=== PATIENT | female | born 2000 | race Caucasian/White ===

== ENCOUNTER 2022-11-27 00:44 | Day surgery (SDC) | payer OTHER ==
[2022-11-27] MEDS ORDERED: LIDOCAINE 1%-EPI 1:100000 10 ML MDV SUBQ STA (01:51)
[2022-11-27] MEDS ORDERED: LIDOCAINE MPF 2%-EPI 1:200000 10 ML VIAL SUBQ SCH (02:00)
[2022-11-27] MEDS ORDERED: LIDOCAINE 1%-EPI 1:100000 20 ML MDV SUBQ STA (02:08)
[2022-11-27] MEDS ORDERED: LIDOCAINE-MPF 2% 5 ML VIAL ONE (02:09)
[2022-11-27] MEDS ORDERED: TRANEXAMIC ACID 1,000 MG in SODIUM CHLORIDE 0.9% 100ML 100 ML IV STA (02:19)
[2022-11-27 02:25] LABS: BASOPHILS % (AUTO) 0.3 %; EOSINOPHILS # (AUTO) 0.1 10^3/uL (0.0-0.7); HCT - HEMATOCRIT 31.4 % (37.0-47.0); HGB - HEMOGLOBIN 10.5 g/dL (12.0-16.0); LYMPHOCYTES # (AUTO) 4.2 10^3/uL (1.5-3.5); LYMPHOCYTES % (AUTO) 46.9 %; MEAN CORPUSCULAR HEMOGLOBIN 28.6 pg (27.0-31.0); MEAN CORPUSCULAR HGB CONC 33.4 g/dL (32.0-36.0); MEAN CORPUSCULAR VOLUME 85.6 fL (81.0-99.0); MEAN PLATELET VOLUME 9.8 fL (7.9-10.8); MONOCYTES # (AUTO) 0.8 10^3/uL (0.0-1.0); MONOCYTES % (AUTO) 8.5 %; NEUTROPHILS # (AUTO) 3.9 10^3/uL (1.5-6.6); NEUTROPHILS % (AUTO) 43.2 %; PLT - PLATELET COUNT 343 10^3/uL (130-450); RED BLOOD COUNT 3.67 10^6/uL (4.20-5.40); RED CELL DISTRIBUTION WIDTH 12.9 % (12.0-15.0); WHITE BLOOD COUNT 8.9 x10^3/uL (4.8-10.8)
[2022-11-27] MEDS ORDERED: TRANEXAMIC ACID 1,000 MG/10 ML VIAL ONE ×2 (02:29→03:18)
--- NOTE | 2022-11-27 02:38 | ED Physician Documentation ---
PD HPI FEMALE - Stated complaint Stated Complaint: FEMALE - Chief complaint Chief Complaint: General - History obtained from History obtained from: Patient - Additional information Additional information: 22-year-old female with no reported past medical conditions presents by private vehicle for vaginal bleeding. Patient was having intercourse with her significant other when they felt a popping sound and discomfort. Afterwards the patient began to bleed heavily. The bleeding seemed to slow down somewhat, however it persisted, and the emergent nursing line that they contacted referred him to the emergency department. Patient is never had a pelvic exam, she has never had a Pap smear, denies history of STIs, G0. Review of Systems Constitutional: denies: Fever, Chills Respiratory: denies: Dyspnea, Cough GI: denies: Abdominal Pain, Nausea, Vomiting : reports: Vaginal bleeding. denies: Dysuria, Frequency, Hesitancy, LMP, Irregular menses, Missed period, Now [facility] PAST MEDICAL HISTORY - Allergies Allergies/Adverse Reactions: Allergies Allergy/AdvReac Type Severity Reaction Status Date / Time No Known Drug Allergies Allergy Verified 11/27/22 01:52 PD ED PE NORMAL - Vitals Vital signs reviewed: Yes - General General: Alert and oriented X 3, Well developed/nourished, Other (anxious) - HEENT HEENT: Atraumatic - Neck Neck: Supple, no meningeal sign - Cardiac Cardiac: No murmur, Strong equal pulses, Other (tachycardia) - Respiratory Respiratory: No respiratory distress, Clear bilaterally - Abdomen Abdomen: Soft, Non tender, Non distended - Female Female : Scaffolding Helper present, Other (vaginal bleeding approximately 3 oclock to 6oclock position. Unable to locate source of bleed) - Derm Derm: Warm and dry, No rash - Extremities Extremities: No deformity - Neuro Neuro: Alert and oriented X 3, senior research engineer 2-12 intact, No motor deficit, No sensory deficit, Normal speech - Psych Psych: Normal mood, Normal affect Results - Vitals Vitals: Vital Signs - 24 hr 11/27/22 11/27/22 11/27/22 01:00 02:20 02:30 Temperature 36.8 C Heart Rate 103 H 103 H 100 Respiratory 16 16 16 Rate Blood Pressure 128/59 L 71/39 L 100/66 O2 Saturation 96 98 100 Oxygen O2 Source Room air - Labs Labs: Laboratory Tests 11/27/22 11/27/22 11/27/22 02:12 02:12 02:17 WBC 8.9 RBC 3.67 L Hgb 10.5 L Hct 31.4 L MCV 85.6 MCH 28.6 MCHC 33.4 RDW 12.9 Plt Count 343 MPV 9.8 Neut # (Auto) 3.9 Lymph # (Auto) 4.2 H [place] # (Auto) 0.8 Eos # (Auto) 0.1 Baso # (Auto) 0.0 Absolute Nucleated RBC 0.00 Nucleated RBC % 0.0 Sodium Potassium Chloride Carbon Dioxide Anion Gap BUN Creatinine Estimated GFR (MDRD) Glucose Calcium Total Bilirubin AST ALT Alkaline Phosphatase Total Protein Albumin Globulin Albumin/Globulin Ratio Blood Type A NEGATIVE Blood Type Recheck A NEGATIVE Antibody Screen NEGATIVE Crossmatch IS Only See Detail 11/27/22 02:17 WBC RBC Hgb Hct MCV MCH MCHC RDW Plt Count MPV Neut # (Auto) Lymph # (Auto) [place] # (Auto) Eos # (Auto) Baso # (Auto) Absolute Nucleated RBC Nucleated RBC % Sodium 137 Potassium 3.6 Chloride 109 Carbon Dioxide 25 Anion Gap 3.0 L BUN 10 Creatinine 0.6 Estimated GFR (MDRD) 126 Glucose 115 H Calcium 8.6 Total Bilirubin 0.2 AST 15 ALT 13 Alkaline Phosphatase 41 L Total Protein 6.0 L Albumin 3.6 Globulin 2.4 Albumin/Globulin Ratio 1.5 Blood Type Blood Type Recheck Antibody Screen Crossmatch IS Only PD Medical Decision Making - ED course Complexity details: reviewed results, re-evaluated patient, considered differential, d/w patient, d/w family ED course: Vaginal bleeding after intercourse. No previous history of Pap smears, uncertain if patient has received HPV vaccine. G0 per patient account. I performed a pelvic exam, and there was oozing of fresh blood noted in the vaginal canal without hemorrhage. Unable to visualize source of bleeding and so at 0135 Dr. Contreras of OBGYN was consulted, who agreed to see patient. Dr. Salas evaluated patient, in interim between my exam and repeat exam the patient's bleeding increased significantly and she is now bleeding briskly from the vagina. Unable to control with bedside means and so decision was made to take patient emergently to OR for vaginal repair. Laboratory work ordered, type and screen sent to lab. Empiric 2 units PRBCs ordered for transfusion prophyl actically. Patient taken quickly to OR by the OR staff. Repair per INSTALLATION AND SERVICE TECHNICIAN. - Critical Care Time(min): 43 Time Includes: Direct patient care, Review records, Reassess patient, Document care, Coordinate care, Medical consult Data interpretation: Labs, Pulse ox, Cardiac output Procedures included in critical care time: Peripheral IV, Blood draw Departure - Departure Disposition: ED Transfer to [facility] Clinical Impression: Vaginal laceration, Vaginal hemorrhage Condition: Serious Discharge Date/Time: 11/27/22 03:24
[2022-11-27 02:43] LABS: ALBUMIN 3.6 g/dL (3.2-5.5); ALBUMIN/GLOBULIN RATIO 1.5 (1.0-2.2); BILIRUBIN,TOTAL 0.2 mg/dL (0.2-1.0); CALCIUM 8.6 mg/dL (8.5-10.3); CREATININE 0.6 mg/dL (0.6-1.3); POTASSIUM 3.6 mmol/L (3.5-4.5)
[2022-11-27] MEDS ORDERED: SUCCINYLCHOLINE 200 MG/10 ML VIAL ONE (02:45)
[2022-11-27] MEDS ORDERED: MIDAZOLAM 2 MG/2 ML VIAL ONE (02:46)
[2022-11-27] MEDS ORDERED: PROPOFOL 200 MG/20 ML VIAL IVP ONE (02:46)
[2022-11-27] MEDS ORDERED: fentaNYL 100 MCG/2 ML VIAL ONE (02:47)
[2022-11-27] MEDS ORDERED: ONDANSETRON 4 MG/2 ML VIAL ONE (03:54)
[2022-11-27] MEDS ORDERED: DEXAMETHASONE 4 MG/ML VIAL ONE (03:54)
[2022-11-27] MEDS ORDERED: LACTATED RINGERS 1,000 ML IV ONE ×2 (04:05→04:34)
[2022-11-27] MEDS ORDERED: NALOXONE 0.4 MG/ML VIAL IVP PRN (04:17)
[2022-11-27] MEDS ORDERED: ONDANSETRON 4 MG/2 ML VIAL IVP PRN (04:17)
[2022-11-27] MEDS ORDERED: HYDROmorphone 0.5 MG/0.5 ML SYRINGE IVP PRN (04:17)
[2022-11-27] MEDS ORDERED: fentaNYL 100 MCG/2 ML VIAL IVP PRN (04:17)
[2022-11-27] MEDS ORDERED: ATROPINE ABBOJECT 1 MG/10 ML SYRINGE IVP PRN (04:17)
[2022-11-27] MEDS ORDERED: MORPHINE 2 MG/ML CARPUJECT IVP PRN (04:17)
--- NOTE | 2022-11-27 04:20 | ANESTHESIA ---
Pre-Anesthesia VS, & Labs - Diagnosis vaginal laceration, hemorrhage - Procedure repair of vaginal laceration Vital Signs: Temp Pulse Resp BP Pulse Ox O2 Flow Rate 36.8 C 100 16 100/66 100 11/27/22 01:00 11/27/22 02:30 11/27/22 02:30 11/27/22 02:30 11/27/22 02:30 Height: 5 ft 9 in Weight (kg): 63.503 kg Body Mass Index: 20.7 BMI Classification: Normal - NPO Last Food Intake: 2329 - Is Patient ?: No - Lab Results Current Lab Results: Laboratory Tests 11/27/22 02:17: Sodium 137, Potassium 3.6, Chloride 109, Carbon Dioxide 25, Anion Gap 3.0 L, BUN 10, Creatinine 0.6, Estimated GFR (MDRD) 126, Glucose 115 H , Calcium 8.6, Total Bilirubin 0.2, AST 15, ALT 13, Alkaline Phosphatase 41 L, Total Protein 6.0 L, Albumin 3.6, Globulin 2.4, Albumin/Globulin Ratio 1.5 11/27/22 02:17: WBC 8.9, RBC 3.67 L, Hgb 10.5 L, Hct 31.4 L, MCV 85.6, MCH 28.6, MCHC 33.4, RDW 12.9, Plt Count 343, MPV 9.8, Neut # (Auto) 3.9, Lymph # (Auto) 4.2 H, [place] # (Auto) 0.8, Eos # (Auto) 0.1, Baso # (Auto) 0.0, Absolute Nucleated RBC 0.00, Nucleated RBC % 0.0 11/27/22 02:12: Blood Type Recheck A NEGATIVE 11/27/22 02:12: Blood Type A NEGATIVE, Antibody Screen NEGATIVE, Crossmatch IS Only See Detail Lab results reviewed: Yes Fish Bones: 11/27/22 02:17 11/27/22 02:17 Home Medications and Allergies Active Medications Lidocaine/Epinephrine (Lidocaine Mpf 2%-Epi 1:[id number] 10 Ml Vial) 20 ml SUBQ ONCE YEHUDA Stop: 11/28/22 01:59 Last Admin: 11/27/22 02:41 Dose: Not Given Allergies/Adverse Reactions: Allergies Allergy/AdvReac Type Severity Reaction Status Date / Time No Known Drug Allergies Allergy Verified 11/27/22 01:52 Anes History & Medical History - Anesthetic History Family history of Anesthesia Complications: Denies Family history of Malignant Hyperthermia: Denies - Medical History Cardiovascular: reports: None Pulmonary: reports: None Gastrointestinal: reports: None Urinary: reports: None Neuro: reports: None Musculoskeletal: reports: None Endocrine/Autoimmune: reports: None Blood Disorders: reports: Anemia (approximate 1000ml blood loss from vaginal laceration.) Skin: reports: None Psychosocial: reports: No issues indicated History of Cancer?: No Exam General: Alert, Oriented x3, Cooperative, No acute distress Dental: WNL Mouth Openin Fingerbreadth Neck Mobility: Normal Mallampati classification: II Thyromental Distance: 4-6 cm Mental/Cognitive Status: Alert/Oriented X3, Normal for patient Plan Anesthesia Type: General (RSI. Will require blood transfusion) Consent for Procedure(s) Verified and Reviewed: Yes Code Status: Attempt Resuscitation ASA classification: 2-Mild systemic disease Is this case an emergency?: Yes
--- NOTE | 2022-11-27 04:28 | ANESTHESIA POST OP EVALUATION ---
Anesthesia Post Eval - Post Anesthesia Eval Vitals: Last Vital Signs Temp 36.2 C L 11/27/22 04:25 Pulse 98 11/27/22 04:25 Resp 15 11/27/22 04:25 BP 113/63 11/27/22 04:25 Pulse Ox 100 11/27/22 04:25 O2 Flow Rate CV Function Including HR & BP: Stable Pain Control: Satisfactory Nausea & Vomiting: Negative Mental Status: Baseline Respiratory Status: Airway Patent Hydration Status: Satisfactory Anesthesia Complications: None
[2022-11-27] MEDS ORDERED: LACTATED RINGERS 1,000 ML IV SCH (05:00)
[2022-11-27] MEDS ORDERED: oxyCODONE/ACET 5/325 Prepack 4 PO STA ×2 (05:15→06:19)
[2022-11-27 05:35] LABS: HCT - HEMATOCRIT 34.7 % (37.0-47.0); HGB - HEMOGLOBIN 11.7 g/dL (12.0-16.0)
[2022-11-27 06:46] VITALS: BP 108/58
[2022-11-27] MEDS ORDERED: oxyCODONE 5 MG TABLET PO ONE (07:00)
[2022-11-27] MEDS ORDERED: ACETAMINOPHEN 325 MG TABLET PO ONE (07:00)
--- NOTE | 2022-11-27 07:14 | OPERATIVE REPORT ---
Operative Report - General Procedure Date: 11/27/22 Planned Procedure: Vaginal laceration repair Pre-Op Diagnosis: vaginal laceration, acute blood loss anemia Procedure Performed: repair of torn vaginal septum Post Op Diagnosis: mullerian agenesis, torn and repaired vaginal septum - Procedure Note Primary Surgeon: Ben Secondary Surgeon: Ish Anesthesia Provider: Camila Anesthesia Technique: General ET tube Pathology: none IV Fluids (mL): 1,200 Estimated Blood Loss (mL): 800 Urine Output (mL): 0 Indications: torn vaginal laceration acute blood loss anemia Findings: Normal vulva normal exterior 1/3 of vagina normal hymenal ring vaginal septum - complete upper 2/3 of vagina - torn appx 2cm laceration two cervixes anticipate 2 uterus though not clearly identifiable on bimanual exam Complications: none - Other Other Information/Narrative: After RBA discussed patient taken to the OR where general anesthesia was administered without difficulty. Time out preformed. All involved agreed. Aforementioned findings were noted. Vaginal septum laceration was repaired with 2.0 vicryl. Starting at the apex, repaired with continuous suture. length of laceration 1.5cm hemostatic after repair. after repair exam under anesthesia confirmed vaginal septum as well as 2 cer vices. all counts correct, patient taken to PACU in stable condition.
== END 2022-11-27 08:18 | disposition home or self-care (01) ==
LOC: ED 00:44 → SDS 02:15 → MS2 04:37 → SDS 08:18
PROVIDERS: ATTEND Obstetrics & Gynecology
DX: S31.41XA Laceration without foreign body of vagina and vulva, initial encounter (principal); X58.XXXA Exposure to other specified factors, initial encounter; N93.8 Other specified abnormal uterine and vaginal bleeding; D62 Acute posthemorrhagic anemia; Q52.10 Doubling of vagina, unspecified; Q51.820 Cervical duplication
CPT/HCPCS: 36415; 57200; 80053; 85014; 85018; 85025; 86850; 86900; 86901; 86920; A9270; J7120; P9016

== ENCOUNTER 2022-12-24 08:05 | Outpatient (CLI) | payer OTHER ==
--- NOTE | 2022-12-27 09:49 | MRI Report ---
PROCEDURE: PELVIS W/WO INDICATIONS: ANOMALIES OF UTERUS TECHNIQUE: Magnetic resonance images were obtained of the pelvis with and without intravenous contras t using multiple sequences and multiple planes. COMPARISON: None. FINDINGS: Image quality: Good Lower abdomen: No bowel obstruction or pathologic ascites. Bladder: Underdistended, unremarkable. Reproductive organs: Numerous ovarian follicles are present, no solid adnexal mass identified. Normal thickness junctional zone. On precontrast T1-weighted images, no active deep pelvic endometrio sis deposits are identified. There are 2 endometrial stripes. Each endometrial stripe measures up to 5 to 6 mm at the fundus, whic h is within normal limits. There is no contour indentation at the uterine fundus. The septum separati ng the 2 endometrial stripes extends to the lower uterine segment and cervix. Rectum: Unremarkable Vessels and lymph nodes: No abdominal aortic aneurysm. No aneurysmal vessel identified. Pelvic wall: Unremarkable Bones: No acute or suspicious osseous finding. 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 Cons ider gynecologic follow-up. No concavity of the uterine fundal contour identified. Reviewed by: Wild Duarte MD on 12/27/2022 9:48 AM PDT Approved by: Wild Duarte MD on 12/27/2022 9:48 AM PDT Station ID: [id number]
== END 2022-12-24 08:06 | disposition home or self-care (01) ==
LOC: DI 08:05
PROVIDERS: ATTEND Obstetrics & Gynecology
DX: Q51.10 Doubling of uterus with doubling of cervix and vagina without obstruction (principal)
CPT/HCPCS: 72197; A9585

== ENCOUNTER 2023-12-15 11:28 | Outpatient (CLI) | payer OTHER ==
[2023-12-15 11:42] LABS: BASOPHILS % (AUTO) 0.3 %; EOSINOPHILS # (AUTO) 0.1 10^3/uL (0.0-0.7); EOSINOPHILS % (AUTO) 0.8 %; HCT - HEMATOCRIT 38.8 % (37.0-47.0); HGB - HEMOGLOBIN 12.2 g/dL (12.0-16.0); LYMPHOCYTES # (AUTO) 3.3 10^3/uL (1.5-3.5); LYMPHOCYTES % (AUTO) 29.8 %; MEAN CORPUSCULAR HEMOGLOBIN 25.5 pg (27.0-31.0); MEAN CORPUSCULAR HGB CONC 31.4 g/dL (32.0-36.0); MEAN CORPUSCULAR VOLUME 81.2 fL (81.0-99.0); MEAN PLATELET VOLUME 9.7 fL (7.9-10.8); MONOCYTES # (AUTO) 0.8 10^3/uL (0.0-1.0); MONOCYTES % (AUTO) 7.4 %; NEUTROPHILS # (AUTO) 6.9 10^3/uL (1.5-6.6); NEUTROPHILS % (AUTO) 61.4 %; PLT - PLATELET COUNT 348 10^3/uL (130-450); RED BLOOD COUNT 4.78 10^6/uL (4.20-5.40); RED CELL DISTRIBUTION WIDTH 13.4 % (12.0-15.0); WHITE BLOOD COUNT 11.2 x10^3/uL (4.8-10.8)
[2023-12-15 17:41] LABS: BILIRUBIN,URINE NEGATIVE (NEGATIVE); GLUCOSE, URINE (UA) NEGATIVE (NEGATIVE); KETONES,URINE (UA) NEGATIVE (NEGATIVE); LEUKOCYTE ESTERASE, URINE TRACE (NEGATIVE); NITRITE,URINE NEGATIVE (NEGATIVE); OCCULT BLOOD,URINE NEGATIVE (NEGATIVE); PROTEIN,URINE NEGATIVE (NEGATIVE); UROBILINOGEN,URINE 0.2 (NORMAL) E.U./dL (NORMAL)
[2023-12-15 17:47] LABS: CLARITY,URINE HAZY (CLEAR)
[2023-12-15 17:58] LABS: BACTERIA,URINE Few /HPF (None Seen); RBC,URINE 0-5 /HPF (0-5); SQUAMOUS EPITHELIAL CELL,UR MOD Squamous (<= Few)
[2023-12-16 03:11] LABS: HBsAG SCREEN Negative (Negative); HIV SCREEN 4TH GENERATION Non Reactive (Non Reactive)
[2023-12-16 06:10] LABS: RPR Non Reactive (Non Reactive)
[2023-12-16 10:09] LABS: VARICELLA-ZOSTER AB IGG <135 index (Immune >165)
[2023-12-17 05:09] LABS: HCV AB Non Reactive (Non Reactive)
== END 2023-12-15 11:29 | disposition home or self-care (01) ==
LOC: LAB 11:28
PROVIDERS: ATTEND Obstetrics & Gynecology
DX: Z34.00 Encounter for supervision of normal first pregnancy, unspecified trimester (principal); Z36.89 Encounter for other specified antenatal screening
CPT/HCPCS: 36415; 81001; 85025; 86592; 86762; 86787; 86803; 86850; 86900; 86901; 87086; 87340; 87389

== ENCOUNTER 2023-12-27 12:37 | Outpatient (CLI) | payer OTHER ==
--- NOTE | 2023-12-27 14:28 | Ultrasound Report ---
PROCEDURE: OB 1st Trimester INDICATIONS: POSITIVE TEST OUTSIDE/PRIOR DATING DATA: Last menstrual period (LMP): 10/24/2023. LMP-based estimated date of delivery (CRISTA): 07/30/2024. First dating scan (date and location): 12/27/2023. Estimated date of delivery (CRISTA) from first dating scan: 08/02/2024. TECHNIQUE: Real-time scanning was performed of the fetus and maternal pelvic organs, with image documentation. COMPARISON: None. FINDINGS: Intrauterine gestational sac present. Embryo: Bromide-rump length measures 2.1 cm coarse 9-8 weeks 5 days Heart rate: 164 bpm. Other: No perigestational fluid collection. Measurement variability in dating: +/- 4 weeks by LMP, +/- 7 days by mean sac diameter (use before 6 weeks gestation if crown-rump length not able to be measured), +/- 5 days by crown-rump length (6-12 weeks gestation). Maternal organs: Ovaries appear within normal limits. IMPRESSION: Single live intrauterine with gestational age of 8 weeks 5 days. Recommend follow-up imaging at 20-22 weeks for dates and anatomy. Reviewed by: Guerline White MD on 12/27/2023 2:26 PM PDT Approved by: Guerline White MD on 12/27/2023 2:26 PM PDT Station ID: [id number]
== END 2023-12-27 12:38 | disposition home or self-care (01) ==
LOC: DI 12:37
PROVIDERS: ATTEND Obstetrics & Gynecology
DX: Z34.01 Encounter for supervision of normal first pregnancy, first trimester (principal)

== ENCOUNTER 2024-01-02 07:15 | Outpatient (CLI) | payer OTHER | END 2024-01-02 07:30 | disposition home or self-care (01) | LOC: LAB.N 07:15 | PROVIDERS: ATTEND Family Medicine | DX: Z13.9 Encounter for screening, unspecified (principal) | CPT/HCPCS: 81599 ==

== ENCOUNTER 2024-01-11 11:10 | Outpatient (CLI) | payer OTHER ==
[2024-01-12 15:49] LABS: BACTERIAL VAGINOSIS DNA POSITIVE (NEGATIVE); CANDIDA GLABRATA DNA NEGATIVE (NEGATIVE); CANDIDA GROUP DNA NEGATIVE (NEGATIVE); CANDIDA KRUSEI DNA NEGATIVE (NEGATIVE); TRICHOMONAS VAGINALIS DNA NEGATIVE (NEGATIVE)
[2024-01-12 15:53] LABS: CHLAMYDIA TRACHOMATIS DNA NEGATIVE (NEGATIVE); NEISSERIA GONORRHOEAE DNA NEGATIVE (NEGATIVE)
== END 2024-01-11 11:11 | disposition home or self-care (01) ==
LOC: LAB.WC 11:10
PROVIDERS: ATTEND Obstetrics & Gynecology
DX: N89.8 Other specified noninflammatory disorders of vagina (principal); Z11.3 Encounter for screening for infections with a predominantly sexual mode of transmission
CPT/HCPCS: 81514; 87491; 87591; 87661

== ENCOUNTER 2024-08-03 10:37 | Inpatient (IN) ==
[2024-08-03] MEDS ORDERED: TERBUTALINE 1 MG/ML VIAL SUBQ PRN (10:43)
[2024-08-03] MEDS ORDERED: miSOPROStoL 200 MCG TABLET BC PRN (10:43)
[2024-08-03] MEDS ORDERED: TRANEXAMIC ACID IN NACL 1,000 MG/100 ML BAG IV PRN (10:43)
[2024-08-03] MEDS ORDERED: LABETALOL 20 MG/4 ML SYRINGE IVP PRN ×3 (10:43)
[2024-08-03] MEDS ORDERED: miSOPROStoL 200 MCG TABLET PR PRN (10:43)
[2024-08-03] MEDS ORDERED: METHYLERGONOVINE 0.2 MG/ML VIAL IM PRN (10:43)
[2024-08-03] MEDS ORDERED: OXYTOCIN 10 UNIT/ML VIAL IM PRN (10:43)
[2024-08-03] MEDS ORDERED: ACETAMINOPHEN 500 MG TABLET PO PRN (10:43)
[2024-08-03] MEDS ORDERED: hydrALAZINE INJ 20 MG/ML VIAL IVP PRN (10:43)
[2024-08-03] MEDS ORDERED: NIFEdipine 10 MG CAPSULE PO PRN (10:43)
[2024-08-03] MEDS ORDERED: OXYTOCIN/SODIUM CHLORIDE 500 ML IV PRN (10:43)
[2024-08-03] MEDS ORDERED: ONDANSETRON 4 MG/2 ML VIAL IVP PRN (10:43)
[2024-08-03] MEDS ORDERED: lidocaine 1% 20 ML MDV ID PRN (10:43)
[2024-08-03] MEDS ORDERED: fentaNYL 100 MCG/2 ML VIAL IVP PRN (10:43)
[2024-08-03] MEDS ORDERED: LACTATED RINGERS 1,000 ML IV PRN (10:43)
[2024-08-03 11:52] LABS: BASOPHILS % (AUTO) 0.1 %; EOSINOPHILS % (AUTO) 0.2 %; HCT - HEMATOCRIT 36.4 % (37.0-47.0); HGB - HEMOGLOBIN 12.1 g/dL (12.0-16.0); LYMPHOCYTES # (AUTO) 2.7 10^3/uL (1.5-3.5); LYMPHOCYTES % (AUTO) 23.8 %; MEAN CORPUSCULAR HEMOGLOBIN 29.2 pg (27.0-31.0); MEAN CORPUSCULAR HGB CONC 33.2 g/dL (32.0-36.0); MEAN CORPUSCULAR VOLUME 87.9 fL (81.0-99.0); MEAN PLATELET VOLUME 10.6 fL (7.9-10.8); MONOCYTES # (AUTO) 0.9 10^3/uL (0.0-1.0); MONOCYTES % (AUTO) 7.6 %; NEUTROPHILS # (AUTO) 7.6 10^3/uL (1.5-6.6); PLT - PLATELET COUNT 271 10^3/uL (130-450); RED BLOOD COUNT 4.14 10^6/uL (4.20-5.40); RED CELL DISTRIBUTION WIDTH 12.5 % (12.0-15.0); WHITE BLOOD COUNT 11.1 x10^3/uL (4.8-10.8)
--- NOTE | 2024-08-03 11:57 | HISTORY & PHYSICAL EXAMINATION ---
Admit History Smoking Status: Never smoker Other Maternal History Other Maternal History: Patient is a 24-year-old G1, P0 at 40 weeks 4 days gestation here for induction of labor at term. No contractions. She has good movement. Denies loss of fluid. No JOSEPH/BV or RUQP. No vaginal bleeding. Denies nausea and vomiting. Denies urinary urgency or dysuria. All other symptoms reviewed and were negative except per HPI. Course FOB Christ Kimball. She is originally from [place], [place]. don't want to know gender. Patient had a uterine and vaginal septum removed. 07/2023 at . has 2 cervixes but from what I could tell from opnote (in chart) the cavity is now connected as one. LMP: 10/23 CRISTA by LMP: 07/30/2024 -12/27/23 @ 8w5d c/w LMP (08/02) FINAL CRISTA: 07/31/2023 Blood type- A- Rhogam 05/08/2024 Anitbody- Negative CBC- Hep B-Negative HepC-NR HIV_NR RUB: NOT immune VZV: NOT immune GCCT-Neg PAP- 01/11/2024- NILM HSV: denies Genetic testing: NIPT normal AFP- Negative Covid: none (virus or vaccine) Flu: declines FAS: Anterior placenta 3VC TEETEE- wnl EFW- 468.3g 59.8%ile 50gm OGCT: 143 3HR GTT: 74 163 172 123 TDAP: given 05/08/2024 mls Breast Pump: has one Antibody screen:negative 3rd trimester H/H/plt 11.8/36.3/260 GBS:07/03 Negative MOD: Contraception: Previous OCPs, considering again. OB Visit Log Initial Weight: 165 lb Meds/Allgy Home Medications Ambulatory Orders Medication Instructions Recorded Confirmed vits no.126-ferrous fum tab PO 02/09/24 07/29/24 28 mg iron-folic acid 800 mcg tablet (Classic ) Allergies Allergies Allergy/AdvReac Type Severity Reaction Status Date / Time No Known Drug Allergies Allergy Verified 07/17/24 13:53 PFSH Active Problems All Active Problems (Updated 08/03/24 @ 12:25 by Brandon Ayala MD) 40 weeks gestation of (Acute) Encounter for induction of labor (Acute) Abnormal glucose tolerance affecting , antepartum (Acute) Rh negative status during (Acute) Congenital malformation of uterus and cervix, unspecified (Acute 01/05/23) Medical History Medical History (Updated 08/03/24 @ 12:25 by Brandon Ayala MD) Supervision of high risk in second trimester Vaginal discharge during Other anomalies of uterus (01/05/23) Social History Social History (Updated 02/09/24 @ 10:18 by Ronna Montes MA) Smoking Status: Never smoker Do you dip or chew tobacco?: No ETOH Use: None Substance Use: denies use Review of Systems Status of ROS: 10 or more systems reviewed and unremarkable except as noted in history and below Physical Other Notes Labor Progress Note/Additional Text: General: Alert, oriented, no acute distress Head: Normal cephalic atraumatic Eyes: PERRLA, extraocular motions intact. Respiratory: Normal rate of respiration. No accessory muscle use, normal respiratory effort. Cardiovascular: Regular rate and rhythm Abdomen: Gravid, nontender, nondistended Extremities: Normal range of motion Neuro: Oriented x3. Normal movements Psych: Appropriate mood and affect. Normal judgment and insight SVE: 2/-3 FHT: 130 bpm baseline, moderate variability, accelerations present, no decelerations. [place]: Quiescent Plan for Labor Plan For Labor I expect patient to be DC'd or transferred within 96 hours.: Yes Conclusion/Plan Problem List (1) Encounter for induction of labor: Plan: -Patient counseled on the risk, benefits, alternatives of induction of labor and desires to proceed. Plan to start with 25 mcg PV of misoprostol every 4 hours. Cervix still not favorable. -Admit for observation for cervical ripening. If successful, will admit for labor. -Epidural at patient's request. (2) 40 weeks gestation of : Plan: Routine and care (3) Rh negative status during : Plan: Will screen Qualifiers: Trimester: third trimester Qualified Code(s): O26.893 - Other specified related conditions, third trimester; Z67.91 - Unspecified blood type, Rh negative (4) Congenital malformation of uterus and cervix, unspecified: Plan: Status post septum resection, no myometrial resection. Lab Results 08/03/24 11:30
[2024-08-03] MEDS: miSOPROStoL 100 MCG TABLET VG SCH (12:13)
[2024-08-03] MEDS: SODIUM CHLORIDE FLUSH 0.9% 10 ML SYRINGE IVP SCH (12:14)
[2024-08-03] MEDS: CALCIUM CARBONATE CHEW 500 MG TABLET PO SCH (20:19)
[2024-08-03] MEDS: SODIUM CHLORIDE FLUSH 0.9% 10 ML SYRINGE IVP PRN (20:19)
--- NOTE | 2024-08-04 10:54 | PROVIDER PROGRESS NOTE ---
Labor Progress Note Uterine Monitoring Uterine Monitoring Mode: positive External toco Contraction Frequency (min/apart): Irregular, 2-6 but intermittent Monitoring Monitor Mode: positive External ultrasound Heart Rate Baseline: 140 Heart Rate Variability: positive Moderate (6-25 bmp) Accelerations: positive Present, 15x15 Decelerations: positive None Vaginal Exam Dilation (in cm): 4 Effacement (%): 60 Station: -2 Labor Progress Note Labor Progress Note/Additional Text: Patient consented to amniotomy. Small amount of clear fluid. Fetus is category 1. Continue expectant management. Epidural at patient's request.
[2024-08-04] MEDS ORDERED: LIDOCAINE 2%-EPI 1:100000 20 ML MDV ONE (11:31)
[2024-08-04] MEDS ORDERED: ROPIVACAINE 0.2% 200 MG/100 ML BAG EP ONE (11:31)
[2024-08-04] MEDS: LACTATED RINGERS 500 ML IV ONE (12:20)
[2024-08-04] MEDS ORDERED: ONDANSETRON 4 MG/2 ML VIAL IVP PRN ×2 (12:22→21:01)
[2024-08-04] MEDS ORDERED: ePHEDrine 50 MG/ML VIAL IVP PRN (12:22)
[2024-08-04] MEDS ORDERED: diphenhydrAMINE INJ 50 MG/ML VIAL IVP PRN (12:22)
[2024-08-04] MEDS ORDERED: NALOXONE 0.4 MG/ML VIAL IVP PRN (12:22)
[2024-08-04] MEDS ORDERED: NALBUPHINE 10 MG/ML AMP IVP PRN (12:22)
[2024-08-04] MEDS ORDERED: METOCLOPRAMIDE 10 MG/2 ML VIAL IVP PRN (12:22)
[2024-08-04] MEDS: OXYTOCIN/SODIUM CHLORIDE 500 ML IV SCH (15:04)
--- NOTE | 2024-08-04 15:45 | ANESTHESIA PROCEDURE NOTE ---
Pre-Anesthesia VS, & Labs Diagnosis Surgical Diagnosis:: labor pain Procedure Procedure: labor epidural Vitals Vital Signs: Temp Pulse Resp BP 36.7 C 103 H 14 134/71 H 08/03/24 11:40 08/03/24 11:40 08/03/24 11:40 08/03/24 11:40 Height (in): 5 ft 8 in Weight (kg): 88 kg Body Mass Index: 29.5 BMI Classification: Overweight NPO Last Fluid Intake: clears now Is Patient ?: Yes Estimated Due Date:: 08/04/24 Lab Results Current Lab Results: Laboratory Tests 08/03/24 11:30: WBC 11.1 H, RBC 4.14 L, Hgb 12.1, Hct 36.4 L, MCV 87.9, MCH 29.2, MCHC 33.2, RDW 12.5, Plt Count 271, MPV 10.6, Neut # (Auto) 7.6 H, Lymph # (Auto) 2.7, [place] # (Auto) 0.9, Eos # (Auto) 0.0, Baso # (Auto) 0.0, Absolute Nucleated RBC 0.00, Nucleated RBC % 0.0, Blood Type A NEGATIVE, Antibody Screen NEGATIVE 08/03/24 11:30 Meds/Allgy Home Medications Ambulatory Orders Medication Instructions Recorded Confirmed vits no.126-ferrous fum tab PO 02/09/24 07/29/24 28 mg iron-folic acid 800 mcg tablet (Classic ) Allergies Allergies Allergy/AdvReac Type Severity Reaction Status Date / Time No Known Drug Allergies Allergy Verified 07/17/24 13:53 PFSH Active Problems All Active Problems 40 weeks gestation of (Acute) Encounter for induction of labor (Acute) Abnormal glucose tolerance affecting , antepartum (Acute) Rh negative status during (Acute) Congenital malformation of uterus and cervix, unspecified (Acute 01/05/23) Medical History Medical History Vaginal discharge during Supervision of high risk in second trimester Other anomalies of uterus (01/05/23) Social History Social History Smoking Status: Never smoker Do you dip or chew tobacco?: No ETOH Use: None Substance Use: denies use Anesthesia Exam (Expanded) Exam General: Alert Dental: WNL Mouth Openin Fingerbreadth Neck Mobility: Normal Mallampati classification: II Thyromental Distance: 4-6 cm Plan Plan Anesthesia Type: Epidural Consent for Procedure(s) Verified and Reviewed: Yes Code Status: Attempt Resuscitation ASA Classification ASA classification: 2-Mild systemic disease Is this case an emergency?: No
[2024-08-04] MEDS: ROPIVACAINE 0.2% 200 MG/100 ML BAG EP PRN (19:05)
[2024-08-04] MEDS ORDERED: CALCIUM CARBONATE CHEW 500 MG TABLET PO PRN (21:01)
[2024-08-04] MEDS ORDERED: SIMETHICONE CHEW 80 MG TABLET PO PRN (21:01)
[2024-08-04] MEDS ORDERED: WITCH HAZEL/GLYCERIN 1 PAD TOP PRN (21:01)
--- NOTE | 2024-08-04 21:07 | DELIVERY NOTE ---
Delivery Note Labor Labor: positive Augmented by oxytocin Infant Delivery Method Delivery Method: positive Spontaneous vaginal delivery Cervical Ripening Method Cervical Ripening Method: positive Misoprostil Presentation Presentation: positive Compound (Left hand) and MARQUEZ - right occiput anterior Nuchal Cord Nuchal Cord: positive Present and Reduced Laceration Laceration: positive 1st degree, Periurethral and Other (Hymenal) Suture Suture Type: positive Vicryl (3-0) and Chromic (3-0) Castile Castile: positive Placed in direct skin contact with mother and [place] used Cord Cord: positive 3 vessels Placenta Placenta: positive Intact Estimated Blood Loss Estimated Blood Loss (in cc): 250 Post Delivery Events Post Delivery Events: positive No post delivery events Delivery Comments (Free Text/Narrative) Delivery Comments (Free Text/Narrative): Preoperative Diagnoses 40 weeks gestation Induction of labor History of vaginal and uterine septum repair Postoperative Diagnoses Same Delivery of live huggins Status post Summary Patient was admitted at 40 weeks 4 days gestation for induction of labor at term. She received 4 doses misoprostol followed by amniotomy. She had hypotonic uterine contractions, so oxytocin was started. She progressed quickly through the day until complete and started to push. Delivery Summary: Patient was placed in the dorsal lithotomy position. Upon maternal pushing the head was delivered atraumatically followed by the anterior shoulder, posterior shoulder, then the remainder of the infant's body. Nuchal cord was reduced. A female was delivered with APGARS of 8 at 1 minute and 9 at 5 minutes. The infant was placed on its mother's chest . After the cord finished pulsating, the umbilical cord was clamped times two and cut. The placenta delivered intact with three vessel cord. Placenta was not sent to pathology. Thirty units of Pitocin were added to the IV fluid and allowed to run freely. Uterine massage was performed until uterus was deemed firm. Upon inspection the perineum, she had a first-degree midline laceration that was repaired with 2 [id number] stitches. She also had a periurethral tear that has small segment of the hymen that was torn. Diameter required 1 [id number] stitch for hemostasis. The periatrial tear was torn, but not bleeding, so no stitching was performed. Upon re-inspection the patient was hemostatic. Uterus again massaged and found to be firm. Needle and sponge counts were correct. Patient was stable and allowed to recover in L&D room. Infant was stable and remained in room with mother. weight is pending at this time.
[2024-08-05] MEDS: LACTATED RINGERS 1,000 ML IV SCH (01:01)
[2024-08-05] MEDS: IBUPROFEN 600 MG TABLET PO SCH (01:12)
[2024-08-05] MEDS: ACETAMINOPHEN 500 MG TABLET PO SCH (01:12)
[2024-08-05] MEDS ORDERED: MEASLES,MUMPS & RUBELLA VACC 0.5 ML VIAL SUBQ ONE (08:44)
[2024-08-05] MEDS: MEASLES,MUMPS & RUBELLA VACC 0.5 ML VIAL SUBQ ONE (10:07)
--- NOTE | 2024-08-05 12:11 | PHARMACY PROGRESS NOTE ---
Best Possible Medication History Admit Date and Time: 08/04/24 1109 Home Medications Medication Instructions Recorded Confirmed Type vits no.126-ferrous fum 1 tab PO DAILY 02/09/24 08/05/24 History 28 mg iron-folic acid 800 mcg tablet (Classic ) Medications reviewed in ED?: Yes Medication History completed: Yes Patient Interview: Completed Secondary Source(s): Insurance records [facility] Statement: Per director ehs and RN iterview with patient. [employer] records also available for review. As the person ultimately responsible for medication therapy, providers are able to order a medication from an existing home medication list in [facility] via the "Reconcile Routine" prior to Confirmation of that medication by clerical support. Such practice is discouraged except when the physician, in their clinical judgment, deems that a medical need exists for a medication without regard to previous use.
--- NOTE | 2024-08-05 20:50 | PROVIDER PROGRESS NOTE ---
Subjective Prog Note Date Prog Note Date: 08/05/24 Prog Note Time: 08:45 Subjective Subjective: got some rest. vag del about 10 pm last night. breast feeding. normal bleeding. Doing well. Current Medications Current Medications Current Medications: Current Medications Generic Name Dose Route Start Last Admin Trade Name Freq PRN Reason Stop Dose Admin Acetaminophen 1,000 mg 08/04/24 22:00 08/05/24 19:11 Acetaminophen 500 Mg Tablet PO 1,000 mg Q8HR YEHUDA Administration Calcium Carbonate/Glycine 500 mg 08/04/24 21:01 Calcium Carbonate Chew 500 Mg Tablet PO TID PRN Heartburn Fentanyl 50 mcg 08/03/24 10:43 Fentanyl 100 Mcg/2 Ml Vial IVP Q1H PRN Severe Pain (score 7-10) Hydralazine HCl 5 - 10 mg 08/03/24 10:43 Hydralazine Inj 20 Mg/Ml Vial IVP Q20M PRN SBP> or= 160 OR DBP> or= 110 Protocol Oxytocin/Sodium Chloride 500 mls @ 999 mls/hr 08/03/24 10:43 Pitocin/Sodium Chloride IV PRN PRN POST- HEMORR PREVENTION Protocol 999 MILLIUNIT/MIN Tranexamic Acid 1,000 mg in 100 mls @ 600 mls/hr 08/03/24 10:43 Tranexamic 1,000 Mg/100ml-Nacl IV Q30M PRN EBL >1200mL and within 3hr Oxytocin/Sodium Chloride 500 mls @ 2 mls/hr 08/04/24 15:00 08/04/24 21:18 Pitocin/Sodium Chloride IV Infused TITR YEHUDA Titration Protocol 2 MILLIUNIT/MIN Ibuprofen 600 mg 08/05/24 00:00 08/05/24 15:14 Ibuprofen 600 Mg Tablet PO 600 mg Q6HR YEHUDA Administration Labetalol HCl 20 mg 08/03/24 10:43 Labetalol 20 Mg/4 Ml Syringe IVP .ONCE PRN SBP> or= 160 OR DBP> or= 110 Protocol Labetalol HCl 20 - 40 mg 08/03/24 10:43 Labetalol 20 Mg/4 Ml Syringe IVP Q10M PRN SBP> or= 160 OR DBP> or= 110 Protocol Labetalol HCl 20 - 80 mg 08/03/24 10:43 Labetalol 20 Mg/4 Ml Syringe IVP Q10M PRN SBP> or= 160 OR DBP> or= 110 Protocol Lidocaine HCl 20 ml 08/03/24 10:43 Lidocaine 1% 20 Ml Mdv ID 08/06/24 10:43 .ONCE PRN PERINEAL REPAIR Methylergonovine Maleate 0.2 mg 08/03/24 10:43 Methylergonovine 0.2 Mg/Ml Vial IM .ONCE PRN Hemorrhage Misoprostol 600 mcg 08/03/24 10:43 Misoprostol 200 Mcg Tablet BC .ONCE PRN Hemorrhage Misoprostol 800 mcg 08/03/24 10:43 Misoprostol 200 Mcg Tablet MS .ONCE PRN Hemorrhage Nifedipine 10 - 20 mg 08/03/24 10:43 Nifedipine 10 Mg Capsule PO Q20M PRN SBP> or= 160 OR DBP> or= 110 Protocol Ondansetron HCl 4 mg 08/03/24 10:43 Ondansetron 4 Mg/2 Ml Vial IVP Q4HR PRN Nausea / Vomiting Ondansetron HCl 4 mg 08/04/24 21:01 Ondansetron 4 Mg/2 Ml Vial IVP Q4HR PRN Nausea / Vomiting Oxytocin 10 unit 08/03/24 10:43 Oxytocin 10 Unit/Ml Vial IM .ONCE PRN Step One if no IV access. Simethicone 80 mg 08/04/24 21:01 Simethicone Chew 80 Mg Tablet PO TID PRN Gas Sodium Chloride 10 ml 08/03/24 10:43 08/03/24 20:19 Sodium Chloride Flush 0.9% 10 Ml Syringe IVP 10 ml PRN PRN Administration NEEDED PER PROVIDER ORDERS Sodium Chloride 10 ml 08/03/24 11:00 08/05/24 09:42 Sodium Chloride Flush 0.9% 10 Ml Syringe IVP Not Given Q8H YEHUDA Terbutaline Sulfate 0.25 mg 08/03/24 10:43 Terbutaline 1 Mg/Ml Vial SUBQ .ONCE PRN Tachystole [place]/Glycerin 1 pad 08/04/24 21:01 [place]/Glycerin 1 Pad TOP PRN PRN ITCHING Objective Vital Signs/Intake & Output Reviewed Vital Signs: Yes Vital Signs: Vital Signs x48h Temp Pulse Resp BP Pulse Ox 08/05/24 16:52 36.9 C 91 16 106/69 96 08/05/24 12:50 36.5 C 94 14 108/59 L 98 Intake & Output: Intake & Output 08/02/24 08/03/24 08/04/24 08/05/24 23:59 23:59 23:59 23:59 Intake Total 1400 / 1400 Output Total 1100 / 1100 400 / 400 Balance 300 / 300 -400 / -400 Weight (kg) 196 lb 194 lb 0.108 oz Objective General Appearance: positive No acute distress Lab Results 08/03/24 11:30 Assessment/Plan Problem List (1) Encounter for induction of labor: Impression: delivered now. routine pp care. discharge tomorrow. (2) 40 weeks gestation of : (3) Rh negative status during : Qualifiers: Trimester: third trimester Qualified Code(s): O26.893 - Other specified related conditions, third trimester; Z67.91 - Unspecified blood type, Rh negative (4) Congenital malformation of uterus and cervix, unspecified:
[2024-08-06 09:16] VITALS: BP 109/63; TEMP 97.7; O2SAT 98
--- NOTE | 2024-08-06 09:32 | Discharge Summary ---
Discharge Summary Admit Date: 08/03/24 Discharge Date: 08/06/24 Discharging Provider: Brandon Ayala Code Status: Attempt Resuscitation DIAGNOSES Admission Diagnoses: 40 weeks gestation History of uterine resection Discharge Diagnoses with Status of Each Condition: Same Status post spontaneous vaginal delivery Delivery of live huggins HPI History of Present Illness: Subjective Patient reports she is doing well. Lochia appropriate. Denies heavy bleeding. Ambulating. Pelvic and abdominal pain well-controlled. Tolerating oral intake. Diet: Regular. Voiding without difficulty. Passing flatus. Denies BM. Patient is bonding with baby in room Breast feeding going well. Denies feeling lightheaded, dizzy or excessively fatigued. Objective General: Alert, oriented, no apparent distress. Cardiovascular: Regular rate. Regular rhythm. Lungs: No increased work of breathing. Abdomen: Uterus firm. Below umbilicus. No guarding or rebound. Extremities: No pain on palpation. No cords palpated. Distal pulses intact. HOSPITAL COURSE Hospital Course: Patient was admitted for induction of labor at 40 weeks gestation and received misoprostol for 4 doses followed by amniotomy. She had hypotonic uterine contractions, so oxytocin was initiated. After that, she progressed quickly until complete and ready to push. Second stage was uncomplicated, had small vaginal lacerations. recovery was uneventful and she was discharged on day 2 with her . ALLERGIES Allergies Allergy/AdvReac Type Severity Reaction Status Date / Time No Known Drug Allergies Allergy Verified 07/17/24 13:53 MEDICATIONS Ambulatory Orders Medication Instructions Recorded Confirmed vits [id number] fum 1 tab PO DAILY 02/09/24 08/05/24 28 mg iron-folic acid 800 mcg tablet (Classic ) PHYSICAL EXAM AT DISCHARGE Vital Signs: Vital Signs x48h Temp Pulse Resp BP BP Pulse Ox 08/06/24 09:15 36.5 C 86 16 109/63 98 08/06/24 03:32 85 14 103/62 96 LABS 08/03/24 11:30 FOLLOW UP Follow Up: With [facility] women's care in 1 to 2 weeks TIME SPENT Time Spent in Discharge (Minutes): 20 Discharge Plan Discharge Patient Disposition: Home, Self Care Condition: Stable Medically Cleared Date:: 08/06/24 Prescriptions: Continued Classic 28 mg iron- 800 mcg tablet 1 tab PO DAILY Diet: Regular Print Language: Syriac Patient Instructions: Vaginal After, Depression Follow-up Care: Brandon Ayala MD [Primary Care Provider] -
--- NOTE | 2024-08-06 10:58 | Labor Flowsheet ---
Labor Flowsheet Datetime Report Generated by CPN: 08/06/2024 10:58 Datetime: 08/06/2024 09:06 VITAL SIGNS NBP Sys/Allyssa/Mean (mmHg): 109 : 63 : 75 Pulse: 88 Datetime: 08/05/2024 21:44 SpO2 (%): 96 Datetime: 08/04/2024 23:00 Stage of : Datetime: 08/04/2024 21:18 MEDICATIONS Pitocin (milliunits): Discontinued Datetime: 08/04/2024 20:47 Medication Comments: pitocin bolus infusing Datetime: 08/04/2024 20:45 Vital Sign Comments: Blood pressure obtained with bent arm Datetime: 08/04/2024 20:44 LaborFlag: Labor Datetime: 08/04/2024 20:30 UTERINE ACTIVITY Monitor Mode: External Frequency (min): 1-3 Quality: Strong Duration (sec): 40-60 Pattern: Normal: <= 5 Contractions in 10 Minutes Resting Tone (Palpate): Relaxed ASSESSMENT A Monitor Mode: Telemetry FHR Baseline Rate : 160 Accelerations: None Decelerations: Prolonged Category: Category II Pushing Progress: Pushing Effectively with Contractions Datetime: 08/04/2024 20:15 Variability: Moderate 6-25 bpm Actions for Decelerations: Provider Notified Comments: provider remains at bedside Datetime: 08/04/2024 20:01 Patient Care Comments: L lateral with raised leg pushing Datetime: 08/04/2024 19:30 Pitocin Checklist: At Least 1 Acceleration of 15 bpm x 15 Seconds in 30 Minutes or Adequate Variabi lity; No More than 1 Late Deceleration Occurred in Past 30 Minutes; No More than 2 Variable Decelerat ions > 60 Seconds in Duration and decreasing >60 bpm in 30 minutes; No More than 5 Uterine Contractio ns in 10 Minutes for any 20 Minute Interval; Uterus Palpates Soft between Contractions Datetime: 08/04/2024 19:15 COMMUNICATION Communication: Report Given to Faizan Peacock RN Datetime: 08/04/2024 18:24 Temperature (C): 36.9 Datetime: 08/04/2024 17:45 I/O Interventions: [place] Discontinued Datetime: 08/04/2024 17:34 Strip Reviewed by: Dr. Jamie Communication Comments: @ bedside Datetime: 08/04/2024 17:22 STAGE 2 Pushing: Coached on Pushing; No Urge to Push Pushing Position: Pushing with Contractions; Pushing Lithotomy Datetime: 08/04/2024 17:15 Provider Notified (Name): Dr. Jamie Datetime: 08/04/2024 17:07 VAGINAL EXAM Dilatation (cm): 10.0 Effacement (%): 100 Station: 0 Exam by: Stobaugh, RN Datetime: 08/04/2024 15:37 Monitor Interventions for FHR: Ultrasound Adjusted Datetime: 08/04/2024 15:00 Contraction Comments: Unable to trace contractions Datetime: 08/04/2024 14:43 Notification Reason: Status Update; Labor Status; Uterine Activity Datetime: 08/04/2024 13:59 Respirations: 15 Temperature Route: Oral Pain Presence: None/Denies Datetime: 08/04/2024 13:49 PATIENT CARE Patient Position/Activity: Left Lateral Datetime: 08/04/2024 13:30 Monitor Interventions for UA: [place] Adjusted Datetime: 08/04/2024 12:06 Epidural Procedure Other: Pump Started Datetime: 08/04/2024 11:54 Epidural Procedure: Loading Dose Datetime: 08/04/2024 11:26 ANESTHESIA Anesthesia Plans: Epidural Anesthesia Comments: Radhames Hutson, NURSE PRACTITIONER MANAGER at bedside. Obtaining consent Datetime: 08/04/2024 11:15 PAIN Pain Scale: 7 Pain Type: Contraction Pain Coping: Declines Medication or Epidural Comfort Measures: Anesthesia Notified Datetime: 08/04/2024 10:04 Membrane Status: Ruptured Membranes Rupture Method: Artificial Amniotic Fluid Color: Clear Amniotic Fluid Amount: Small Amniotic Fluid Odor: None Datetime: 08/03/2024 16:26 Vaginal Bleeding: Normal Show Datetime: 08/03/2024 12:14 Cervix, Consistency: Soft Cervix, Position: Posterior
== END 2024-08-06 10:45 | disposition home or self-care (01) | DRG 807 ==
LOC: WFO 10:37 → FBP 10:37
PROVIDERS: ADMIT Obstetrics & Gynecology; ATTEND Obstetrics & Gynecology
DX: O26.893 Other specified pregnancy related conditions, third trimester; O32.6XX0 Maternal care for compound presentation, not applicable or unspecified; Z3A.40 40 weeks gestation of pregnancy; O69.81X0 Labor and delivery complicated by cord around neck, without compression, not applicable or unspecified; Z67.11 Type A blood, Rh negative; O70.0 First degree perineal laceration during delivery; Z37.0 Single live birth